=== PATIENT | male | born 1960 | race Caucasian/White ===

== ENCOUNTER 2020-10-13 14:26 | Emergency (ER) | payer BC ==
[2020-10-13] MEDS ORDERED: Diphtheria,Pertussis(Acell),Tetanus Vaccine 0.5 ML Syringe IM ONE (15:08)
--- NOTE | 2020-10-13 15:13 | EDM.PDOC ---
ED HPI GENERAL MEDICAL PROBLEM - General Chief Complaint: Wound Recheck Stated Complaint: WANTS RT THUMB CHECKED OUT/HAD FISH HOOK Time Seen by Provider: 10/13/20 14:54 History Limitations: Reports: No Limitations - History of Present Illness INITIAL COMMENTS - FREE TEXT/NARRATIVE: 59 yo male presents following fish hook puncture. He removed the hook prior to arrival. needs tetanus update - Related Data Allergies Allergy/AdvReac Type Severity Reaction Status Date / Time No Known Allergies Allergy Verified 10/13/20 14:49 Home Meds: Home Meds Omeprazole 1 tab PO DAILY 10/13/20 [History] Past Medical History - Past Health History Medical/Surgical History: Denies Medical/Surgical History Social & Family History - Tobacco Use Tobacco Use Status *Q: Never Tobacco User ED ROS GENERAL - Review of Systems Review Of Systems: See Below Constitutional: Denies: Fever, Chills Respiratory: Denies: Shortness of Breath, Wheezing Cardiovascular: Denies: Chest Pain ED EXAM, SKIN/RASH Exam: See Below Exam Limited By: No Limitations General Appearance: Alert, WD/WN, No Apparent Distress Skin: Other (right thumb 3 puncture wound entrances mld edema and echymosis ) Course - Vital Signs Last Recorded V/S: Last Vital Signs Temp 36.5 C 10/13/20 14:55 Pulse 84 10/13/20 14:55 Resp 16 10/13/20 14:55 BP 133/64 10/13/20 14:55 Pulse Ox 98 10/13/20 14:55 - Orders/Labs/Meds Orders: Active Orders 24 hr Category Date Time Status Vaccines to be Administered [RC] PER UNIT ROUTINE Care 10/13/20 15:09 Ordered Diphth,Pertuss(Acell),Tet Vac [Boostrix] Med 10/13/20 15:08 Once 0.5 ml IM .ONCE ONE Meds: Medications Discontinued Medications Generic Name Dose Route Start Last Admin Trade Name Freq PRN Reason Stop Dose Admin Diphtheria/Tetanus/Acell Pertussis 0.5 ml 10/13/20 15:08 Diphtheria,Pertussis(Acell),Tetanus Vaccine 0.5 Ml Syringe IM 10/13/20 15:09 .ONCE ONE Departure - Departure Time of Disposition: 15:12 Disposition: Home, Self-Care 01 Condition: Good Clinical Impression: Puncture wound - Discharge Information *PRESCRIPTION DRUG MONITORING PROGRAM REVIEWED*: Not Applicable *COPY OF PRESCRIPTION DRUG MONITORING REPORT IN PATIENT ARTURO: Not Applicable Instructions: Puncture Wound Referrals: PCP,None [Primary Care Provider] - Sepsis Event Note (ED) - Evaluation Sepsis Screening Result: No Definite Risk - Focused Exam Vital Signs: Vital Signs Temp Pulse Resp BP Pulse Ox 10/13/20 14:55 36.5 C 84 16 133/64 98 10/13/20 14:48 36.5 C 84 16 133/64 98 - My Orders Last 24 Hours: My Active Orders 10/13/20 15:08 Diphth,Pertuss(Acell),Tet Vac [Boostrix] 0.5 ml IM .ONCE ONE 10/13/20 15:09 Vaccines to be Administered [RC] PER UNIT ROUTINE - Assessment/Plan Last 24 Hours: My Active Orders 10/13/20 15:08 Diphth,Pertuss(Acell),Tet Vac [Boostrix] 0.5 ml IM .ONCE ONE 10/13/20 15:09 Vaccines to be Administered [RC] PER UNIT ROUTINE
== END 2020-10-13 16:40 | disposition home or self-care (01) ==
LOC: JP.ED 14:26
DX: S61.031A Puncture wound without foreign body of right thumb without damage to nail, initial encounter (principal); R60.0 Localized edema; Z23 Encounter for immunization; W45.8XXA Other foreign body or object entering through skin, initial encounter
CPT/HCPCS: 90471; 90715; 99283-25

== ENCOUNTER 2020-10-14 17:27 | Emergency (ER) | payer BC ==
--- NOTE | 2020-10-14 18:50 | EDM.PDOC ---
ED HPI GENERAL MEDICAL PROBLEM - General Chief Complaint: General Stated Complaint: FISH HOOK Time Seen by Provider: 10/14/20 18:22 Source of Information: Reports: Patient, RN Notes Reviewed History Limitations: Reports: No Limitations - History of Present Illness INITIAL COMMENTS - FREE TEXT/NARRATIVE: 59-year-old gentleman presents emergency department day with a fishhook to the trapezius muscle left side functional complaints - Related Data Allergies Allergy/AdvReac Type Severity Reaction Status Date / Time No Known Allergies Allergy Verified 10/14/20 18:19 Home Meds: Home Meds Omeprazole 1 tab PO DAILY 10/13/20 [History] Past Medical History - Past Health History Medical/Surgical History: Denies Medical/Surgical History Social & Family History - Caffeine Use Caffeine Use: Reports: None ED ROS GENERAL - Review of Systems Review Of Systems: See Below Skin: Reports: Wound ED EXAM, GENERAL - Physical Exam Exam: See Below Free Text/Narrative:: There is a fishhook trapezius muscle left side, this fishhook is removed local anesthesia: 1% lidocaine without epinephrine was used an 18-gauge needle was then used to cover the jennifer impacted in the Exam Limited By: No Limitations General Appearance: Alert, WD/WN, Mild Distress Course - Vital Signs Last Recorded V/S: Last Vital Signs Temp 98 F 10/14/20 18:21 Pulse 81 10/14/20 18:21 Resp 18 10/14/20 18:21 BP 172/101 H 10/14/20 18:21 Pulse Ox 97 10/14/20 18:21 - Orders/Labs/Meds Meds: Medications Discontinued Medications Generic Name Dose Route Start Last Admin Trade Name Marissa PRN Reason Stop Dose Admin Lidocaine HCl 5 ml 10/14/20 18:22 Lidocaine 1% 5 Ml Sdv INJECT 10/14/20 18:23 ONETIME ONE Departure - Departure Time of Disposition: 18:50 Disposition: Home, Self-Care 01 Condition: Fair Clinical Impression: Fishing hook foreign body Qualifiers: Encounter type: initial encounter Qualified Code(s): W45.8XXA - Other foreign body or object entering through skin, initial encounter - Discharge Information Referrals: PCP,None [Primary Care Provider] - Additional Instructions: Follow-up primary care as needed Sepsis Event Note (ED) - Evaluation Sepsis Screening Result: No Definite Risk - Focused Exam Vital Signs: Vital Signs Temp Pulse Resp BP Pulse Ox 10/14/20 18:21 98 F 81 18 172/101 H 97 10/14/20 18:19 98 F 81 18 172/101 H 97 - Assessment/Plan Plan: Assessment Acuity = acute Site and laterality = fishhook back Etiology = trauma Manifestations = none Location of injury = Home Lab values = none Plan Follow-up primary care as needed use 600 mg Motrin as needed for pain control This note was dictated using [employer] voice recognition software please call with any questions on syntax or grammar.
== END 2020-10-14 19:00 | disposition home or self-care (01) ==
LOC: JP.ED 17:27
DX: S40.252A Superficial foreign body of left shoulder, initial encounter (principal); Z79.899 Other long term (current) drug therapy; W57.XXXA Bitten or stung by nonvenomous insect and other nonvenomous arthropods, initial encounter
CPT/HCPCS: 99283